=== PATIENT | male | born 1955 | race American Indian/Alaskan Native ===

== ENCOUNTER 2019-05-03 19:13 | Emergency (ER) | payer SELFPAY ==
--- NOTE | 2019-05-03 20:00 | EDM.PDOC ---
ED HPI GENERAL MEDICAL PROBLEM - General Chief Complaint: Respiratory Problem Stated Complaint: LUNGS HURT Time Seen by Provider: 05/03/19 19:45 Source of Information: Reports: Patient History Limitations: Reports: No Limitations - History of Present Illness INITIAL COMMENTS - FREE TEXT/NARRATIVE: 63-year-old male with left-sided chest pain for the past 4 days, was seen at the clinic 3 days ago and a chest x-ray was negative but then he started to have hemoptysis. The pain is persistent, hemoptysis seems to be slowing down. Short of breath with activity but no fever or chills. No nausea or vomiting. Onset: Gradual Duration: Day(s): (4-5 days) Location: Reports: Chest (Left chest in the axillary area) Associated Symptoms: Reports: Chest Pain, Cough. Denies: Shortness of Breath left chest wall Pain Score (Numeric/FACES): 8 - Related Data Allergies Allergy/AdvReac Type Severity Reaction Status Date / Time No Known Allergies Allergy Verified 05/03/19 19:37 Home Meds: Home Meds Albuterol Sulfate [Albuterol Sulfate Hfa] 8.5 gm IH QID PRN 05/03/19 [History] Lisinopril [Zestril] 10 mg PO DAILY 05/03/19 [History] Past Medical History HEENT History: Reports: Allergic Rhinitis Cardiovascular History: Reports: Hypertension Respiratory History: Reports: Asthma Musculoskeletal History: Reports: Fracture Neurological History: Reports: Other (See Below) Other Neuro History: hx of thoracic spine fractures - Past Surgical History GI Surgical History: Reports: Hernia, Abdominal Social & Family History - Tobacco Use Smoking Status *Q: Current Every Day Smoker Years of Tobacco use: 50 Packs/Tins Daily: 0.5 - Caffeine Use Caffeine Use: Reports: Energy Drinks, Soda - Recreational Drug Use Recreational Drug Use: No ED ROS GENERAL - Review of Systems Review Of Systems: See Below Constitutional: Denies: Fever, Chills HEENT: Reports: No Symptoms Respiratory: Reports: Shortness of Breath (With activity), Pleuritic Chest Pain , Cough, Hemoptysis GI/Abdominal: Reports: No Symptoms ED EXAM, GENERAL - Physical Exam Exam: See Below Exam Limited By: No Limitations General Appearance: Alert, No Apparent Distress Head: Atraumatic Respiratory/Chest: No Respiratory Distress, Wheezing (Scattered expiratory wheezes are present) Cardiovascular: Regular Rate, Rhythm Extremities: Normal Inspection, No Pedal Edema Neurological: Alert, Oriented Psychiatric: Normal Affect, Normal Mood Skin Exam: Warm, Dry Course - Vital Signs Last Recorded V/S: Last Vital Signs Temp 96.6 F 05/03/19 19:40 Pulse 70 05/03/19 19:40 Resp 16 05/03/19 19:40 BP 192/108 H 05/03/19 19:40 Pulse Ox 98 05/03/19 19:40 - Orders/Labs/Meds Orders: Active Orders 24 hr Category Date Time Status RT Aerosol Therapy [RC] ASDIRECTED Care 05/03/19 20:06 Active Labs: Laboratory Tests 05/03/19 05/03/19 05/03/19 Range/Units 20:10 20:10 20:10 WBC 8.3 (4.5-11.0) K/uL RBC 4.34 (4.30-5.90) M/uL Hgb 13.5 (12.0-15.0) g/dL Hct 41.3 (40.0-54.0) % MCV 95 (80-98) fL MCH 31 (27-31) pg MCHC 33 (32-36) % Plt Count 311 (150-400) K/uL Neut % (Auto) 52 (36-66) % Lymph % (Auto) 33 (24-44) % [place] % (Auto) 12 H (2-6) % Eos % (Auto) 3 (2-4) % Baso % (Auto) 0 (0-1) % D-Dimer, Quantitative 273 (0.0-400.0) ng/mL Sodium 142 (140-148) mmol/L Potassium 3.8 (3.6-5.2) mmol/L Chloride 106 (100-108) mmol/L Carbon Dioxide 29 (21-32) mmol/L Anion Gap 7.4 (5.0-14.0) mmol/L BUN 18 (7-18) mg/dL Creatinine 1.2 (0.8-1.3) mg/dL Est Cr Clr Drug Dosing 57.60 mL/min Estimated GFR (MDRD) > 60 (>60) Glucose 90 (74-106) mg/dL Calcium 8.2 L (8.5-10.1) mg/dL Meds: Medications Discontinued Medications Generic Name Dose Route Start Last Admin Trade Name Riddhi PRN Reason Stop Dose Admin Albuterol/Ipratropium 3 ml 05/03/19 20:06 05/03/19 20:11 Duoneb 3.0-0.5 Mg/3 Ml NEB 05/03/19 20:07 3 ml ONETIME ONE Administration - Re-Assessments/Exams Free Text/Narrative Re-Assessment/Exam: 05/03/19 20:46 A DuoNeb was given, a d-dimer, BMP and CBC were obtained. If d-dimer is elevated a CT chest with contrast will be obtained. 05/03/19 21:01 Labs are normal including d-dimer. The two-view chest x-ray was obtained. 05/03/19 21:18 Two-view chest x-ray shows a slight possible infiltrate in the right upper lobe near the apex. No abnormality on the left side where his chest is hurting. He' ll be placed on a five-day course of Zithromax and recheck in one week because if the hemoptysis does not resolve he will need a bronchoscopy or CT of the chest with IV contrast. He can return sooner if worsening despite treatment. Departure - Departure Time of Disposition: 21:21 Disposition: Home, Self-Care 01 Condition: Good Clinical Impression: Bronchitis - Discharge Information Instructions: Acute Bronchitis, Adult, [id number] Referrals: PCP,None [Primary Care Provider] - Forms: ED Department Discharge Care Plan Goals: Take antibiotic as prescribed and recheck in one week if not back to normal. Return sooner if worsening despite treatment such as difficulty breathing, persistent fever or worsening bloody cough. - My Orders Last 24 Hours: My Active Orders 05/03/19 20:06 RT Aerosol Therapy [RC] ASDIRECTED - Assessment/Plan Last 24 Hours: My Active Orders 05/03/19 20:06 RT Aerosol Therapy [RC] ASDIRECTED
[2019-05-03] MEDS ORDERED: Albuterol/Ipratropium 3.0-0.5 MG/3 ML Neb Soln NEB ONE (20:06)
--- NOTE | 2019-05-03 22:05 | CRLCR ---
INDICATION: dyspnea TECHNIQUE: Chest 2 views. COMPARISON: None. FINDINGS: Cardiovascular and mediastinum: Heart size and vasculature are normal in caliber and appearance. Mediastinum is within normal limits. Lungs and pleural spaces: Lungs are clear. No sign of infiltrate or mass. No sign of pleural effusion. No pneumothorax. Bones and soft tissues: No significant findings. IMPRESSION: Unremarkable chest. Dictated by: Lebron Frye MD @ 05/03/2019 22:03:05 (Electronically Signed)
== END 2019-05-03 21:24 | disposition home or self-care (01) ==
LOC: JP.ED 19:13
DX: J40 Bronchitis, not specified as acute or chronic (principal)
CPT/HCPCS: 36415; 71046; 80048; 85025; 85379; 94640; 99284; 99285-25; J7620-GY